=== PATIENT | female | born 1965 | race Caucasian/White ===

== ENCOUNTER 2022-01-23 15:29 | Outpatient (CLI) | payer BC, SELFPAY ==
[2022-01-23 21:57] LABS: Chloride* 104 mmol/L (96-114); Potassium* 4.3 mmol/L (3.6-5.1); Sodium* 139 mmol/L (135-149)
[2022-01-23 21:59] LABS: Creatinine* 0.6 mg/dL (0.5-1.5); Estimated Glomerular Filt Rate 105 ml/min
[2022-01-23 22:00] LABS: Blood Urea Nitrogen* 21 mg/dL (7-30); Carbon Dioxide* 26 mmol/L (20-32); Glucose* 103 mg/dL (60-115)
[2022-01-23 22:01] LABS: Calcium* 9.7 mg/dL (8.4-10.6)
[2022-01-23 23:01] LABS: Free T4 Free Thyroxine* 1.11 ng/dL (0.70-1.85)
== END 2022-01-23 15:30 | disposition home or self-care (01) ==
LOC: LKVREF 15:31
PROVIDERS: PCP Emergency Medicine; Visit Provider Emergency Medicine
DX: Z01.818 Encounter for other preprocedural examination (principal); E03.9 Hypothyroidism, unspecified; I10 Essential (primary) hypertension; E66.01 Morbid (severe) obesity due to excess calories
CPT/HCPCS: 80048; 84439; 84443

== ENCOUNTER 2022-05-02 14:45 | Outpatient (RCR) | payer BC, SELFPAY | END 2022-05-25 08:15 | disposition home or self-care (01) | PROVIDERS: PCP Emergency Medicine; Visit Provider Student in an Organized Health Care Education/Training Program | DX: M17.12 Unilateral primary osteoarthritis, left knee (principal); Z51.89 Encounter for other specified aftercare | CPT/HCPCS: 97016; 97110; 97112; 97116; 97140; 97161 ==

== ENCOUNTER 2022-06-12 18:17 | Outpatient (CLI) | payer BC, SELFPAY | END 2022-06-12 18:18 | disposition home or self-care (01) | LOC: LKVREF 18:18 | PROVIDERS: PCP Emergency Medicine; Visit Provider Emergency Medicine | DX: E03.9 Hypothyroidism, unspecified (principal) | CPT/HCPCS: 84443 ==

== ENCOUNTER 2022-07-09 16:23 | Outpatient (CLI) | payer BC, SELFPAY | END 2022-07-09 16:24 | disposition home or self-care (01) | LOC: NFLDREF 07-13 10:41 | PROVIDERS: PCP Emergency Medicine; Referring Provider Emergency Medicine; Visit Provider Emergency Medicine | DX: I10 Essential (primary) hypertension (principal) | CPT/HCPCS: 80048 ==

== ENCOUNTER 2022-11-20 16:31 | Outpatient (CLI) | payer BC, SELFPAY | END 2022-11-20 16:32 | disposition home or self-care (01) | LOC: NFLDREF 11-21 08:58 | PROVIDERS: PCP Emergency Medicine; Referring Provider Emergency Medicine; Visit Provider Emergency Medicine | DX: N39.0 Urinary tract infection, site not specified (principal); N30.01 Acute cystitis with hematuria | CPT/HCPCS: 87086; 87186 ==

== ENCOUNTER 2022-12-06 13:18 | Outpatient (CLI) | payer BC, SELFPAY | END 2022-12-06 13:19 | disposition home or self-care (01) | PROVIDERS: PCP Emergency Medicine; Visit Provider Emergency Medicine | DX: Z00.00 Encounter for general adult medical examination without abnormal findings (principal); I10 Essential (primary) hypertension; E03.9 Hypothyroidism, unspecified; Z13.6 Encounter for screening for cardiovascular disorders; Z13.1 Encounter for screening for diabetes mellitus | CPT/HCPCS: 80053; 84443 ==

== ENCOUNTER 2023-02-20 11:23 | Outpatient (CLI) | payer BC, SELFPAY | END 2023-02-20 11:24 | disposition home or self-care (01) | LOC: LKVREF 11:24 | PROVIDERS: PCP Emergency Medicine; Visit Provider Emergency Medicine | DX: Z01.818 Encounter for other preprocedural examination (principal); R73.03 Prediabetes; Z13.1 Encounter for screening for diabetes mellitus; I10 Essential (primary) hypertension; E66.01 Morbid (severe) obesity due to excess calories; Z13.6 Encounter for screening for cardiovascular disorders | CPT/HCPCS: 80048; 80061 ==

== ENCOUNTER 2023-06-12 09:23 | Outpatient (CLI) | payer BC, SELFPAY | END 2023-06-12 09:24 | disposition home or self-care (01) | PROVIDERS: PCP Emergency Medicine; Visit Provider Emergency Medicine | DX: Z01.818 Encounter for other preprocedural examination (principal) | CPT/HCPCS: 80048 ==

== ENCOUNTER 2024-02-03 08:48 | Outpatient (CLI) | payer BC, SELFPAY | END 2024-02-03 08:49 | disposition home or self-care (01) | LOC: NFLDREF 02-05 12:46 | PROVIDERS: PCP Emergency Medicine; Referring Provider Emergency Medicine; Visit Provider Emergency Medicine | DX: E03.9 Hypothyroidism, unspecified (principal); I10 Essential (primary) hypertension; Z13.220 Encounter for screening for lipoid disorders | CPT/HCPCS: 80053; 80061; 84443 ==

== ENCOUNTER 2024-06-29 08:43 | Outpatient (CLI) | payer BC, SELFPAY | END 2024-06-29 08:44 | disposition home or self-care (01) | LOC: NFLDREF 07-01 03:40 | PROVIDERS: PCP Emergency Medicine; Referring Provider Emergency Medicine; Visit Provider Emergency Medicine | DX: R73.03 Prediabetes (principal); I10 Essential (primary) hypertension; E03.9 Hypothyroidism, unspecified; Z13.6 Encounter for screening for cardiovascular disorders | CPT/HCPCS: 80048; 80061; 84443 ==

== ENCOUNTER 2024-06-29 08:44 | Outpatient (CLI) | payer BC, SELFPAY ==
[2024-06-29 13:30] LABS: Basophils Absolute Auto 0.04 K/uL (0.00-0.30); Basophils Percent Auto 0.5 % (0.0-3.0); Eosinophils Absolute Auto 0.26 K/uL (0.00-0.50); Eosinophils Percent Auto 3.3 % (0.0-7.0); Hematocrit 43.6 % (33.0-51.0); Hemoglobin* 13.8 gm/dL (12.0-16.0); Immature Granulocytes Pct Auto 2.5 %; Lymphocytes Absolute Auto 1.72 K/uL (0.90-2.90); Lymphocytes Percent Auto 21.8 % (20-44); Mean Corpuscular HGB Conc 32 gm/dL (32-36); Mean Corpuscular Hemoglobin 29 pg (26-34); Mean Corpuscular Volume 93 fL (80-100); Monocytes Percent Auto 12.4 % (0.0-11.0); Neutrophils Percent Auto 59.5 % (42.0-72.0); Platelet Count* 271 K/uL (140-440)
[2024-06-29 13:39] LABS: Slide Review Reflex No
[2024-06-29 15:22] LABS: Vitamin B12* 872 pg/mL (243-894)
[2024-06-30 19:37] LABS: Folate, Serum >22.3 ng/mL (>=5.9)
[2024-07-01 20:22] LABS: QuantiFERON Mitogen minus NIL 9.97 IU/mL; QuantiFERON NIL 0.03 IU/mL; Quantiferon Plus TB2 minus NIL 0.02 IU/mL (<=0.34); Quantiferon TB Gold Plus Negative (Negative)
== END 2024-06-29 08:45 | disposition home or self-care (01) ==
LOC: NPINS 08:45
PROVIDERS: PCP Emergency Medicine; Visit Provider Nurse Practitioner Family
DX: K51.90 Ulcerative colitis, unspecified, without complications (principal)
CPT/HCPCS: 82607; 82746; 83993; 85025; 86140; 86480

== ENCOUNTER 2024-07-07 07:55 | Outpatient (CLI) | payer BC, SELFPAY ==
[2024-07-09 16:00] LABS: Calprotectin, Fecal >3000 ug/g (<=49)
== END 2024-07-07 07:56 | disposition home or self-care (01) ==
LOC: NPINS 07:56
PROVIDERS: PCP Emergency Medicine; Visit Provider Nurse Practitioner Family
DX: K51.90 Ulcerative colitis, unspecified, without complications (principal)
CPT/HCPCS: 83993

== ENCOUNTER 2024-07-15 09:27 | Outpatient (CLI) | payer BC, SELFPAY | END 2024-07-15 09:28 | disposition home or self-care (01) | PROVIDERS: PCP Emergency Medicine; Visit Provider Emergency Medicine | DX: D64.9 Anemia, unspecified (principal); R30.9 Painful micturition, unspecified; K76.0 Fatty (change of) liver, not elsewhere classified; K21.9 Gastro-esophageal reflux disease without esophagitis | CPT/HCPCS: 80076; 82728; 87086 ==

== ENCOUNTER 2024-10-15 15:24 | Outpatient (CLI) | payer BC, SELFPAY | END 2024-10-15 15:25 | disposition home or self-care (01) | LOC: LKVREF 15:25 | PROVIDERS: PCP Emergency Medicine; Visit Provider Emergency Medicine | DX: N30.01 Acute cystitis with hematuria (principal); B96.1 Klebsiella pneumoniae [K. pneumoniae] as the cause of diseases classified elsewhere | CPT/HCPCS: 87086 ==

== ENCOUNTER 2024-12-02 10:23 | Outpatient (CLI) | payer BC, SELFPAY | END 2024-12-02 10:24 | disposition home or self-care (01) | LOC: LKVREF 10:23 | PROVIDERS: PCP Emergency Medicine; Visit Provider Emergency Medicine | DX: I10 Essential (primary) hypertension (principal) | CPT/HCPCS: 80048 ==